=== PATIENT | female | born 1990 | race Caucasian/White ===

== ENCOUNTER 2017-11-29 23:50 | Inpatient (IN) | payer OTHER ==
[2017-11-30] MEDS ORDERED: OXYTOCIN 30 UNITS/LR 500 ML IV ×2 (00:28→04:30)
[2017-11-30] MEDS ORDERED: LIDOCAINE 0.5% (SDV) 50 ML INJ (00:29)
[2017-11-30] MEDS: LACTATED RINGER S IV (00:42)
[2017-11-30] MEDS: AMPICILLIN 2 GM/NS (PMX) 100 ML IVPB (00:43)
[2017-11-30] MEDS ORDERED: IBUPROFEN 600 MG TAB PO (01:00)
[2017-11-30] MEDS: LIDOCAINE 0.5% (MDV) 50 ML INJ INJ (01:00)
[2017-11-30] MEDS: OXYTOCIN 30 UNITS/LR 500 ML IV ×3 (01:21→05:13)
[2017-11-30] MEDS: OXYCODONE/ASPIRIN (4.88/325) TAB PO (01:44)
[2017-11-30 02:32] LABS: ADD MAN DIFF? NO
[2017-11-30 02:34] LABS: WHITE BLOOD COUNT 7.3 10^3/ul (4.8-10.8)
[2017-11-30 02:34] LABS: BASOPHILS % 0.3 % (0.0-2.0); EOSINOPHILS % 0.1 % (0.0-7.0); HEMATOCRIT 33.3 % (37.0-47.0); LYMPHOCYTES # 1.7 10^3/ul (0.8-2.9); MEAN CORPUSCULAR HEMOGLOBIN 27.7 pg (29.0-33.0); MEAN CORPUSCULAR VOLUME 83.9 fl (82.0-101.0); MEAN PLATELET VOLUME 12.2 fl (7.4-10.4); MONOCYTE # 0.3 10^3/ul (0.3-0.9); MONOCYTES % 4.2 % (0.0-11.0); NEUTROPHIL # 5.3 10^3/ul (1.6-7.5); NEUTROPHILS % 72.1 % (39.0-77.0); PLATELET COUNT 163 10^3/UL (140-415); RED BLOOD COUNT 3.97 10^6/ul (4.20-5.40); RED CELL DISTRIBUTION WIDTH 13.2 % (11.5-14.5)
[2017-11-30 02:38] LABS: INR 0.96; PROTIME 12.9 Sec (11.9-14.9)
[2017-11-30 02:39] LABS: PARTIAL THROMBOPLASTIN TIME 29.3 Sec (23.0-35.0)
[2017-11-30 04:10] LABS: HEPATITIS B SURFACE ANTIGEN NEGATIVE (NEGATIVE)
[2017-11-30] MEDS ORDERED: NACL 0.9% 3 ML SYG IV (04:30)
[2017-11-30] MEDS ORDERED: OXYCODONE/ASPIRIN (4.88/325) TAB PO ×2 (04:30)
[2017-11-30] MEDS ORDERED: MISOPROSTOL 200 MCG TAB PR (04:30)
[2017-11-30] MEDS ORDERED: METHYLERGONOVINE 0.2 MG INJ IM (04:30)
[2017-11-30] MEDS ORDERED: CARBOPROST 250 MCG INJ IM (04:30)
[2017-11-30] MEDS: WITCH HAZEL/GLYCERIN PAD PR (05:14)
[2017-11-30] MEDS: BENZOCAINE 20% 56 ML SPRAY TOP (05:14)
[2017-11-30] MEDS: LANOLIN 7 GM TUBE TOP (05:14)
[2017-11-30] MEDS: IBUPROFEN 600 MG TAB PO ×3 (05:21→17:36)
[2017-11-30] MEDS: SENNA/DOCUSATE NA (8.6MG/50MG) TAB PO ×2 (10:30→21:44)
[2017-11-30 15:36] LABS: RAPID PLASMA REAGIN NONREACTIVE (NR)
[2017-12-01] MEDS: IBUPROFEN 600 MG TAB PO ×4 (00:30→17:22)
[2017-12-01 08:57] LABS: ADD MAN DIFF? NO
[2017-12-01 09:03] LABS: BASOPHILS % 0.4 % (0.0-2.0); EOSINOPHILS % 0.5 % (0.0-7.0); HEMATOCRIT 32.4 % (37.0-47.0); HEMOGLOBIN 10.4 g/dl (12.0-16.0); LYMPHOCYTES # 1.9 10^3/ul (0.8-2.9); LYMPHOCYTES % 22.9 % (15.0-51.0); MEAN CORPUSCULAR HEMOGLOBIN 27.2 pg (29.0-33.0); MEAN CORPUSCULAR HGB CONC 32.1 g/dl (32.0-37.0); MEAN CORPUSCULAR VOLUME 84.6 fl (82.0-101.0); MEAN PLATELET VOLUME 11.9 fl (7.4-10.4); MONOCYTE # 0.4 10^3/ul (0.3-0.9); NEUTROPHIL # 5.9 10^3/ul (1.6-7.5); NEUTROPHILS % 70.8 % (39.0-77.0); PLATELET COUNT 165 10^3/UL (140-415); RED BLOOD COUNT 3.83 10^6/ul (4.20-5.40); RED CELL DISTRIBUTION WIDTH 13.3 % (11.5-14.5)
[2017-12-01 09:03] LABS: WHITE BLOOD COUNT 8.4 10^3/ul (4.8-10.8)
[2017-12-01] MEDS: SENNA/DOCUSATE NA (8.6MG/50MG) TAB PO ×2 (09:49→21:00)
[2017-12-02] MEDS: IBUPROFEN 600 MG TAB PO ×3 (00:15→12:18)
[2017-12-02] MEDS: SENNA/DOCUSATE NA (8.6MG/50MG) TAB PO (10:04)
== END 2017-12-02 15:53 | disposition home or self-care (01) | DRG 775 ==
LOC: OBT 23:50 → L-D 23:50 → PP1 11-30 03:04
PROVIDERS: Obstetrics & Gynecology
PROC: 10E0XZZ Delivery of Products of Conception, External Approach (ICD-10-PCS; principal; 2017-11-30)
DX: O80 Encounter for full-term uncomplicated delivery (principal); Z3A.38 38 weeks gestation of pregnancy; Z37.0 Single live birth
CPT/HCPCS: 85025; 85610; 85730; 86592; 86900; 86901; 87340